=== PATIENT | male | born 1965 | race African-American/Black ===

== ENCOUNTER 2021-05-03 01:30 | Emergency (ER) | payer MEDICAID, OTHER ==
[~2021-05-03] VITALS: Ht 193 cm; Wt 104.3 kg
[2021-05-03] MEDS ORDERED: diphenhdrAMINE HCL 50 MG/1 ML VL IV ONE ×2 (02:00→04:30)
[2021-05-03] MEDS ORDERED: methylPREDNISolone SOD SUCC 125 MG/2 ML VL IV ONE ×2 (02:00→04:30)
[2021-05-03 05:48] VITALS: BP 128/82
== END 2021-05-03 06:47 | disposition home or self-care (01) ==
LOC: ER 01:31
DX: T78.40XA Allergy, unspecified, initial encounter (principal); I10 Essential (primary) hypertension; F17.210 Nicotine dependence, cigarettes, uncomplicated; G89.29 Other chronic pain; M54.9 Dorsalgia, unspecified; Z88.8 Allergy status to other drugs, medicaments and biological substances; Y92.89 Other specified places as the place of occurrence of the external cause
CPT/HCPCS: 96374; 96375; 96376; 99284; J1200; J2930

== ENCOUNTER 2022-05-11 13:12 | Emergency (ER) | payer MEDICAID ==
[~2022-05-11] VITALS: Ht 193 cm; Wt 102.2 kg
[2022-05-11 14:02] VITALS: BP 160/68
[2022-05-11 16:57] LABS: Basophils # (auto) 0.1 10 ^3/uL (0-0.2); Basophils % (auto) 0.7 % (0.0-2.0); Eosinophils # (auto) 0 10 ^3/uL (0-0.8); Eosinophils % (auto) 0.2 % (0.0-7.0); Hematocrit 44.4 % (41.0-53.0); Hemoglobin 14.2 g/dL (13.5-17.5); Lymphocytes # (auto) 1.6 10 ^3/uL (0.4-5.4); Lymphocytes % (auto) 11.7 % (10.0-50.0); Mean Corpuscular Hemoglobin 27.9 pg (28.0-32.0); Mean Corpuscular Volume 87.2 fL (80.0-100.0); Monocytes % (auto) 7.4 % (0.0-12.0); Neutrophils # (auto) 11.2 10 ^3/uL (1.6-8.6); Red Blood Cells 5.09 10^6/uL (4.5-5.90); Red Cell Distribution Width 15.4 % (11.8-14.3)
[2022-05-11 17:13] LABS: Albumin 4.4 g/dL (3.4-5.0); BUN/Creatinine Ratio 14.4; Calcium 8.6 mg/dL (8.5-10.1); Potassium 4.3 mmol/L (3.5-5.1)
[2022-05-11 17:16] LABS: Bilirubin, Total 0.5 mg/dL (0.2-1.0); Total Protein 7.6 g/dL (6.4-8.2)
== END 2022-05-11 17:38 | disposition home or self-care (01) ==
LOC: ER 13:12
DX: S46.912A Strain of unspecified muscle, fascia and tendon at shoulder and upper arm level, left arm, initial encounter (principal); S30.1XXA Contusion of abdominal wall, initial encounter; K42.9 Umbilical hernia without obstruction or gangrene; I10 Essential (primary) hypertension; G89.29 Other chronic pain; M54.9 Dorsalgia, unspecified; F17.210 Nicotine dependence, cigarettes, uncomplicated; Z88.8 Allergy status to other drugs, medicaments and biological substances; V43.52XA Car driver injured in collision with other type car in traffic accident, initial encounter; Y93.89 Activity, other specified; Y92.410 Unspecified street and highway as the place of occurrence of the external cause; Y99.8 Other external cause status
CPT/HCPCS: 36415; 73030; 74176; 80053; 84484; 85025; 93005

== ENCOUNTER 2022-11-04 08:53 | Emergency (ER) | payer MEDICAID, OTHER ==
[~2022-11-04] VITALS: Ht 193 cm; Wt 99.0 kg
[2022-11-04 09:29] VITALS: BP 145/75
[2022-11-04] MEDS ORDERED: PRED20TA2 PO (10:46)
[2022-11-04] MEDS ORDERED: CEPH500C PO (10:46)
== END 2022-11-04 10:51 | disposition home or self-care (01) ==
LOC: ER 08:53
DX: S02.2XXA Fracture of nasal bones, initial encounter for closed fracture (principal); S16.1XXA Strain of muscle, fascia and tendon at neck level, initial encounter; S63.91XA Sprain of unspecified part of right wrist and hand, initial encounter; I10 Essential (primary) hypertension; F17.210 Nicotine dependence, cigarettes, uncomplicated; G89.29 Other chronic pain; M54.9 Dorsalgia, unspecified; Z79.899 Other long term (current) drug therapy; Z88.8 Allergy status to other drugs, medicaments and biological substances; V49.9XXA Car occupant (driver) (passenger) injured in unspecified traffic accident, initial encounter; Y93.89 Activity, other specified; Y92.410 Unspecified street and highway as the place of occurrence of the external cause; Y99.8 Other external cause status
CPT/HCPCS: 70160; 72040; 73130

== ENCOUNTER 2023-11-17 11:09 | Emergency (ER) | payer MEDICAID, OTHER ==
[~2023-11-17] VITALS: Ht 193 cm; Wt 97.6 kg
[~2023-11-17 11:09] MED LIST: CEPH500C PO; PRED20TA2 PO
[2023-11-17 11:48] VITALS: BP 155/66; PULSE 67; RESP 16; TEMP 97.7; O2SAT 100
[2023-11-17] MEDS ORDERED: CEPH500C PO (12:15)
[2023-11-17] MEDS ORDERED: BACDST PO (12:15)
[2023-11-17] MEDS ORDERED: IBUP-1456 PO (12:15)
== END 2023-11-17 12:29 | disposition home or self-care (01) ==
LOC: ER 11:09
DX: R23.8 Other skin changes (principal); L08.9 Local infection of the skin and subcutaneous tissue, unspecified; I10 Essential (primary) hypertension; F17.210 Nicotine dependence, cigarettes, uncomplicated; Z79.1 Long term (current) use of non-steroidal anti-inflammatories (NSAID); Z79.899 Other long term (current) drug therapy; Z88.8 Allergy status to other drugs, medicaments and biological substances